=== PATIENT | female | born 1970 | race Caucasian/White ===

== ENCOUNTER → 2018-07-16 | Outpatient (CLI) | payer BC ==
--- NOTE | 2018-07-16 13:12 | KCIC ---
EXAM: Left elbow, 3 views. HISTORY: Trauma. COMPARISON: None. FINDINGS: 3 views of the left elbow are obtained. There is no acute fracture, dislocation or subluxation. There is no elbow effusion. There is a small benign osseous excrescence along the lateral epicondyle, likely sequela of remote injury. IMPRESSION: No acute osseous finding. Electronically signed by: Magaly Daniels MD (07/16/2018 1:09 PM) [facility]
== END | disposition home or self-care (01) ==
LOC: KCIC 12:50
DX: S59.902D Unspecified injury of left elbow, subsequent encounter (principal); W19.XXXD Unspecified fall, subsequent encounter
CPT/HCPCS: 73080